=== PATIENT | female | born 1975 | race African-American/Black ===

== ENCOUNTER 2019-01-10 12:26 | Inpatient (IN) ==
--- NOTE | 2019-01-10 12:42 | EKG Report ---
Test Performed on : 01/10/2019 12:33:56 PM Test Reason : cp Blood Pressure : / mmHG Vent. Rate : 127 BPM Atrial Rate : 127 BPM P-R Int : 000 ms QRS Dur : 088 ms QT Int : 302 ms P-R-T Axes : 000 -27 151 degrees QTc Int : 438 ms Atrial fibrillation. with rapid ventricular response. with premature ventricular or aberrantly conduc jean pierre complexes. Voltage criteria for left ventricular hypertrophy ST & T wave abnormality, consider lateral ischemia Abnormal ECG When compared with ECG of 14-FEB-2018 10:51, Atrial fibrillation. has replaced Sinus rhythm. Vent. rate has increased BY 70 BPM T wave inversion no longer evident in Inferior leads Unconfirmed Result
[2019-01-10] MEDS ORDERED: CARDIZEM IV ONE (13:05)
[2019-01-10] MEDS ORDERED: CARDIZEM 100 MG/NS 100 MG/100 ML IVPB IV SCH (13:15)
[2019-01-10 13:26] LABS: ALLEN TEST YES; BE 4.3 mmoll (-3.0-3.0); BLOOD TYPE ARTERIAL; HCO3-(ACT) 28.2 mmoll (20.0-26.0); METHB 1.2 % (0.0-1.5); MODALITY ROOM AIR; O2(CT) 22.7 mL/dL (15.0-23.0); PO2(98.6) 132 mmHg (60-100); SAMPLE BLOOD; SAO2 99.2 % (95.0-100.0); THB 16.7 g/dL (11.5-17.4)
[2019-01-10 13:27] LABS: PCO2(98.6) 14 mmHg (35-45); pH(98.6) 7.75 (7.35-7.45)
[2019-01-10] MEDS ORDERED: ATIVAN IV ONE (13:30)
--- NOTE | 2019-01-10 13:52 | Diag Imaging Result Doc PS360 ---
EXAM: CHEST-1 VIEW INDICATION: cp, sob TECHNIQUE: One view COMPARISON: 04/20/2018 FINDINGS: The lungs are grossly clear. There is no discrete pleural fluid collection or pneumothorax. The heart is mildly prominent but stable. Central vasculature is unremarkable. IMPRESSION: Stable mild cardiomegaly. No definite acute chest pathology. Electronically signed by Clayton Schilling 01/10/2019 1:50 PM
[2019-01-10] MEDS ORDERED: CARDIZEM 125 MG/D5W 125 MG/125 ML IVPB IV ONE (14:00)
[2019-01-10 14:01] LABS: BASO# 0.02 X1000 (0.0-0.2); BASO% 0.2 % (0.0-0.8); EOS# 0.14 X1000 (0.0-0.7); EOS% 1.2 % (0.0-10.0); HEMATOCRIT 46.7 % (37.0-47.0); HEMOGLOBIN 16.6 g/dL (12.0-16.0); IMM GRAN# 0.02 X1000 (0.0-0.04); IMM GRAN% 0.2 % (0.0-0.5); LYMPH# 2.44 X1000 (1.2-3.4); MCH 33.1 PG (27-31); MCHC 35.5 g/dL (33-37); MONO# 0.72 X1000 (0.11-0.59); MONO% 6.2 % (1.7-9.3); MPV 11.3 FL (7.4-10.4); NEUT# 8.29 X1000 (1.4-6.5); NEUT% 71.2 % (42.2-75.2); PLT 178 X1000 (130-400); RBC 5.02 XMIL (4.2-5.4); RDW 11.9 % (11.5-14.5); WBC 11.63 X1000 (4.8-10.8)
[2019-01-10 14:10] LABS: INR 0.99; PROTIME 13.2 Seconds (11.0-16.0)
[2019-01-10 14:11] LABS: PTT 33.5 Seconds (22.3-41.8)
[2019-01-10 14:24] LABS: ALBUMIN 4.3 g/dL (3.5-5.0); CALCIUM 10.4 mg/dL (8.8-10.2); CREATININE 1.4 mg/dL (0.5-0.9); POTASSIUM 3.6 mmol/L (3.5-5.1); TOTAL BILIRUBIN 1.15 mg/dL (0.20-1.00); TOTAL PROTEIN 8.3 g/dL (6.3-8.3)
[2019-01-10 14:25] LABS: ALB/GLOB RATIO 1.1
--- NOTE | 2019-01-10 16:04 | Diag Imaging Result Doc PS360 ---
EXAM: CT ANGIOGRAM PULMONARY ARTERIES - 01/10/2019 HISTORY: thoracic aneurysm, sob TECHNIQUE: CT angiogram pulmonary arteries with intravenous contrast. Axial, coronal, and 3-D MIP images are obtained. COMPARISON: None. FINDINGS: There are no filling defects identified pulmonary arteries. The ascending aorta is mildly ectatic up to 3.7 cm. There is no other thoracic aortic aneurysm identified. The contrast bolus timing was optimized for evaluation of the pulmonary arteries. There is no obvious thoracic aortic dissection, however. There are scattered ill-defined pulmonary opacities, some which are associated with small emphysematous bulla. There is no dense consolidation, pleural effusion, or pneumothorax identified. There are calcified subcarinal mediastinal lymph nodes from old granulomatous disease. There are no abnormally enlarged noncalcified mediastinal lymph nodes identified. There is nonspecific mild enlargement of the visualized left adrenal gland. IMPRESSION: No evidence of pulmonary embolism. Mild ectasia of ascending aorta at 3.7 cm. Scattered nonspecific ill-defined small pulmonary opacities, some which appear to be associated with small emphysematous bulla. Correlation with clinical evaluation and/or follow-up is recommended. Electronically signed by Ronny Christian 01/10/2019 4:02 PM
[2019-01-10] MEDS ORDERED: TYLENOL PO PRN (16:25)
[2019-01-10] MEDS ORDERED: ZOFRAN IV PRN (16:25)
[2019-01-10] MEDS ORDERED: LASIX PO SCH (17:00)
[2019-01-10] MEDS ORDERED: CARDIZEM 125 MG/D5W 125 MG/125 ML IVPB IV SCH (17:00)
--- NOTE | 2019-01-10 18:42 | HISTORY AND PHYSICAL ---
PRIMARY CARE PROVIDER: CHRIS Alves and Dr. Cobb. PLUG SHAPER HAND: Dr. Best. CHIEF COMPLAINT: Chest pain with palpitations. HISTORY OF PRESENT ILLNESS: Ms. Brandy Ruiz is a 43-year-old female with a medical history of hypertrophic cardiomyopathy and diastolic heart failure, hypertension, thoracic aneurysm, who has never had a history of atrial fibrillation. She does state that recently she has been having palpitations from time to time but nothing like this morning. Around 9 a.m. she took her Toprol along with all of her other morning medications, she ate breakfast, and then at 9:30 a.m. she developed a sudden onset of chest discomfort with palpitations. She had dizziness, lightheadedness, nausea, and diaphoresis that was along with it. She felt very anxious and was brought here to the emergency department. She was found to be in atrial fibrillation with rapid ventricular response. Blood pressure was stable. She was given IV Cardizem and started on a drip which controlled the rate. She has been in an out of atrial fibrillation. She does have a little bit of chronic kidney disease, it looks like stage 3, and has been complaining of decreased urine output. So, we will admit her to [facility] for further evaluation and workup with Cardiology consulted. She will have an echocardiogram this admission. PAST MEDICAL HISTORY: 1. Hypertrophic cardiomyopathy. 2. Diastolic heart failure. 3. Hypertension. 4. Thoracic aneurysm. 5. Chronic kidney disease stage 3. 6. Morbid obesity, BMI is 40.6. Apparently she was heavier than that at one point in time. PAST SURGICAL HISTORY: Hysterectomy. SOCIAL HISTORY: She is a nonsmoker. She quit smoking around a year ago but she apparently smoked since the age of 19, less than a half pack per day. She used to smoke marijuana; also stop that a year ago. She drinks every other weekend, red wine. She currently works at a day care. Lives with her . FAMILY HISTORY: Mother had diabetes type 2 and hypertension. Grandmother on the maternal side had diabetes, congestive heart failure, hypertension, stroke, and heart attack. Grandfather, heart attack and prostate cancer. Father is unknown. ALLERGIES: No known drug allergies. HOME MEDICATIONS: 1. Spironolactone hydrochlorothiazide 25/25 1 tablet p.o. on Wednesday, Wednesday, Wednesday, Wednesday, Wednesday. 2. Hydralazine 100 mg p.o. t.i.d. 3. Aspirin 81 mg p.o. daily. 4. Ferrous sulfate 325 mg p.o. daily. 5. Lasix 20 mg p.o. t.i.d. 6. Potassium chloride 20 mEq p.o. daily. 7. Toprol 200 mg p.o. daily. 8. Norvasc 10 mg p.o. daily. 9. Lisinopril 40 mg p.o. daily. 10. Vitamin D 00999 units p.o. every 7 days. REVIEW OF SYSTEMS: Fourteen point review of systems are complete and all were negative except for those mentioned above in HPI. She has complained of some fluid weight gain. No chest pains except for today. Has been having palpitations on and off. Denies fever, chills, nausea, vomiting except she had nausea this morning. She stated that she did have tingling in the left fingers and left foot after she had gotten here but that has resolved. PHYSICAL EXAMINATION: VITAL SIGNS: Temperature 99.6 degrees, heart rate 80, respiratory rate 22, blood pressure 147/97, O2 saturation 100% on nasal cannula. She is 5 feet 9 inches tall, 275 pounds with a BMI of 40.6. GENERAL: Ms. Brandy Ruiz is a 43-year-old female. She is in no acute distress. She is mildly short of breath but is able answer all questions without difficulty. HEENT: Atraumatic, normocephalic. Pupils equal, round, reactive to light. Extraocular movements intact. Mucous membranes are moist. NECK: Trachea midline. CARDIOVASCULAR: Irregularly irregular rate and rhythm with what sounds like a holosystolic murmur about a 4/6 grade, maybe even a 5/6 grade. She has trace pitting edema in the left lower extremity. The right lower extremity is without edema. There are +2 dorsalis and radial pulses. Mild JVD. Negative for carotid bruits. PULMONARY: Clear to auscultation. Bilateral breath sounds. No accessory muscle use, just mild work of breathing. Tolerating nasal cannula. GI: Soft, round. Positive bowel sounds x4. EXTREMITIES: Moves all extremities equally. Full range of motion. NEUROLOGIC: A O x3. Follows commands. Sensory is intact. SKIN: Warm, dry, intact. LABORATORY DATA: White blood cells 11,000, hemoglobin 16, hematocrit 46, platelet count 178,000. INR 0.99, PTT is 33.5. D-dimer 0.49. ABGs on room air, pH 7.75, pCO2 14, PO2 132, bicarb 28, base excess 4, saturation 96%. Lactate 2.3. Sodium 137, potassium 3.6, BUN 23, creatinine is 1.4, glucose 121, calcium 10.4, magnesium 1.7. Bilirubin is 1.15, AST 19, ALT 13. Troponin 0.016. ProBNP is 5,511. Albumin 4.3. IMAGING: Pulmonary arteriogram: No evidence of pulmonary embolism. There is mild ectasia of the ascending aorta at 3.7 cm. Scattered nonspecific, ill-defined, small pulmonary opacity some of which appeared to be associated with small emphysematous bullae. Chest x-ray: Stable mild cardiomegaly. No acute findings. EKG: The one at 12:33 was atrial fibrillation with RVR, rate 127. ASSESSMENT AND PLAN: 1. New onset atrial fibrillation with rapid ventricular response. Could be secondary to her hypotrophic cardiomyopathy. She was started on Cardizem, was given a push and rate was more controlled and chest discomfort that was going along with the rate has nearly subsided. Cardiology is consulted. 2. Chest pain, likely associated with the rapid ventricular response of atrial fibrillation. Will do cardiac enzymes. Repeat EKG in the morning. 3. Diastolic congestive heart failure. She has trace pitting edema in the left lower extremity. She is on Lasix 20 p.o. 3 times a day. She is on Toprol. Will continue those 2. 4. Chronic kidney disease stage 3. It looks like she is pretty much at baseline. She has complained of decreased urination, so we will have to keep a strict I O, especially while she is on her p.o. Lasix. 5. Hypertension. Hold the lisinopril for now. Continuing her on her Norvasc and her Toprol and her hydrochlorothiazide with spironolactone. Blood pressure is in the 140s at this time. She already took her morning medications. 6. Deep venous thrombosis prophylaxis. Heparin 5000 units subcutaneously twice a day. Dictated by CHRIS Bird for John Collins MD cc: CHRIS Bird MD Luis N. Villanueva, MD I agree with most components of history, physical, assessment and plan. A separate addendum has been dictated. MTDD
[2019-01-10] MEDS ORDERED: LOVENOX 1 MG/KG SUBQ SCH (19:15)
[2019-01-10] MEDS ORDERED: NS 1,000 ML IV SCH ×2 (19:15)
--- NOTE | 2019-01-10 20:08 | HISTORY AND PHYSICAL ---
ADDENDUM: This is an addendum to History and Physical dictated by nurse practitioner. I agree with most components of the history, physical, assessment and plan. In brief, Ms. Grijalva is a 43-year-old lady, with past medical history of essential hypertension, congestive heart failure, significant left ventricular hypertrophy, who came in with chief complaints of chest pain and palpitation. Apparently, patient has been having some sinus symptoms since last few days. However, it did not bother her. Today morning, she woke up and she was doing okay. Around 9 a.m., she suddenly started developing chest discomfort in the center of the chest associated with dizziness, lightheadedness, nausea and vomiting, and she probably threw up her medications. She felt anxious and was brought to the emergency department, where she was found to have atrial fibrillation with rapid ventricular response. Her heart rate initially was in the 140s, which came down after intravenous diltiazem, following which hospitalist team was consulted for further management. SUBJECTIVE: At the time of my evaluation, she is feeling slightly better. She is still complaining of heavy pressure in the chest which is reproducible. She denies any more nausea or vomiting. She denies any shortness of breath as such. VITAL SIGNS: Temperature 98.5 degrees, pulse 73, respiratory rate 21, blood pressure 115/94, saturating 95% on 2 L nasal cannula. PHYSICAL EXAMINATION: GENERAL: Morbidly obese, not in acute distress. ORAL CAVITY: Moist. LUNGS: Air entry bilaterally equal. No wheeze, rhonchi, crackles. CARDIOVASCULAR: S1, S2 normal. No murmur, rub, or gallop. Irregularly irregular, except mild systolic murmur affecting left 2nd intercostal space, accentuated during inspiration. ABDOMEN: Obese, soft, nontender. EXTREMITIES: Mild lower extremity edema. NEUROLOGIC: She is alert, oriented x3, but appears very weak. LABS: Significant for mild leukocytosis, normal hemoglobin which, in fact, appears concentrated. She has alkalosis, predominantly respiratory. There is discrepancy between bicarbonate reported on ABG as well as BMP. She also has renal failure. Her proBNP was elevated. MICROBIOLOGY: No data. IMAGING: Pulmonary arteriogram had no evidence of pulmonary embolism. There was mild ectasia for the ascending aorta at 3.7 cm. ASSESSMENT: 1. Atypical chest pain and palpitations, likely in the setting of atrial fibrillation. 2. Profound respiratory alkalosis. Could have been panic attack, though she denies prior history of those attacks before. 3. Essential hypertension. 4. History of hypertrophic cardiomyopathy without obstruction. 5. Essential hypertension. 6. Atrial fibrillation with rapid ventricular rate. PLAN: 1. I will keep the patient on intravenous diltiazem drip. 2. Follow up echocardiogram. 3. Will resume her home metoprolol tomorrow. 4. Will also keep on enoxaparin, therapeutic dose. 5. I will also get inflammatory markers to see if a viral syndrome could have precipitated, since she has had sinus symptoms. 6. I will give her intravenous fluid resuscitation because she appears clinically volume depleted, and follow up with arterial blood gases. 7. Plan of care discussed with patient and her family members at bedside. Their questions have been answered. cc: John Collins MD
[2019-01-10] MEDS: LOVENOX SUBQ SCH (20:15)
[2019-01-10] MEDS ORDERED: HEPARIN SUBQ SCH (21:00)
[2019-01-10 21:28] LABS: BLOOD TYPE ARTERIAL; SAMPLE BLOOD
[2019-01-10 21:29] LABS: ALLEN TEST YES; BE 1.7 mmoll (-3.0-3.0); HCO3-(ACT) 26.2 mmoll (20.0-26.0); O2(CT) 21.8 mL/dL (15.0-23.0); O2HB 96.9 % (95.0-99.0); PCO2(98.6) 33 mmHg (35-45); PO2(98.6) 137 mmHg (60-100); SAO2 99.4 % (95.0-100.0); THB 15.9 g/dL (11.5-17.4); pH(98.6) 7.48 (7.35-7.45)
[2019-01-10 21:31] LABS: MODALITY CANNULA
[2019-01-10] MEDS: XOPENEX NEB INH SCH (22:49)
[2019-01-10] MEDS: ATROVENT NEB INH SCH (22:49)
[2019-01-11 01:21] LABS: UR CREAT RANDOM 101.3 mg/dL (11-20)
[2019-01-11] MEDS: ATROVENT NEB INH SCH ×3 (03:58→15:28)
[2019-01-11] MEDS: XOPENEX NEB INH SCH ×3 (03:58→15:28)
[2019-01-11 04:44] LABS: BLOOD TYPE ARTERIAL; PCO2(98.6) 41 mmHg (35-45); SAMPLE BLOOD
[2019-01-11 04:45] LABS: HCO3-(ACT) 25.4 mmoll (20.0-26.0); PO2(98.6) 138 mmHg (60-100)
[2019-01-11 04:46] LABS: ALLEN TEST YES; MODALITY CANNULA
[2019-01-11 05:48] LABS: BASO# 0.01 X1000 (0.0-0.2); BASO% 0.1 % (0.0-0.8); EOS# 0.15 X1000 (0.0-0.7); EOS% 2.2 % (0.0-10.0); HEMATOCRIT 43.5 % (37.0-47.0); LYMPH# 1.84 X1000 (1.2-3.4); LYMPH% 26.7 % (20.5-51.1); MCH 33.5 PG (27-31); MCHC 34.5 g/dL (33-37); MCV 97.1 FL (81-99); MONO# 0.84 X1000 (0.11-0.59); MONO% 12.2 % (1.7-9.3); MPV 10.6 FL (7.4-10.4); NEUT# 4.06 X1000 (1.4-6.5); NEUT% 58.8 % (42.2-75.2); PLT 136 X1000 (130-400); RBC 4.48 XMIL (4.2-5.4); RDW 12.1 % (11.5-14.5)
[2019-01-11 06:04] LABS: INR 1.22; PROTIME 15.6 Seconds (11.0-16.0); PTT 42.6 Seconds (22.3-41.8)
[2019-01-11 06:17] LABS: ALB/GLOB RATIO 1.3; ALBUMIN 3.7 g/dL (3.5-5.0); CALCIUM 8.7 mg/dL (8.8-10.2); CREATININE 1.3 mg/dL (0.5-0.9); POTASSIUM 3.4 mmol/L (3.5-5.1); TOTAL BILIRUBIN 1.51 mg/dL (0.20-1.00); TOTAL PROTEIN 6.5 g/dL (6.3-8.3)
[2019-01-11] MEDS: LOVENOX SUBQ SCH (06:32)
--- NOTE | 2019-01-11 07:33 | EKG Report ---
Test Performed on : 01/11/2019 06:37:12 AM Test Reason : chest pain Blood Pressure : / mmHG Vent. Rate : 077 BPM Atrial Rate : 046 BPM P-R Int : 000 ms QRS Dur : 088 ms QT Int : 390 ms P-R-T Axes : 000 -14 163 degrees QTc Int : 441 ms Atrial fibrillation. Voltage criteria for left ventricular hypertrophy ST & T wave abnormality, consider lateral ischemia Abnormal ECG When compared with ECG of 10-JAN-2019 14:39, (Unconfirmed) No significant change was found Confirmed by Enrico ANSARI, Esteban Canales ([id number]) on 01/11/2019 8:40:02 AM
--- NOTE | 2019-01-11 08:23 | EKG Report ---
Test Performed on : 01/10/2019 2:39:53 PM Test Reason : ED. NO EKG ORDER FOR MUSE Blood Pressure : / mmHG Vent. Rate : 091 BPM Atrial Rate : 163 BPM P-R Int : 000 ms QRS Dur : 090 ms QT Int : 366 ms P-R-T Axes : 000 -17 162 degrees QTc Int : 450 ms Atrial fibrillation. with a competing junctional pacemaker. with premature ventricular or aberrantly conducted complexes. Voltage criteria for left ventricular hypertrophy ST & T wave abnormality, consider lateral ischemia Abnormal ECG When compared with ECG of 10-JAN-2019 12:33, (Unconfirmed) No significant change was found Unconfirmed Result
[2019-01-11] MEDS: FERROUS SULFATE PO SCH (08:31)
[2019-01-11] MEDS: TOPROL XL PO SCH (08:31)
[2019-01-11] MEDS: ASPIRIN PO SCH (08:32)
[2019-01-11] MEDS: NORVASC PO SCH (08:32)
--- NOTE | 2019-01-11 11:04 | EKG Report ---
Test Performed on : 01/11/2019 10:59:39 AM Test Reason : afib Blood Pressure : / mmHG Vent. Rate : 065 BPM Atrial Rate : 051 BPM P-R Int : 216 ms QRS Dur : 090 ms QT Int : 436 ms P-R-T Axes : 071 -17 178 degrees QTc Int : 453 ms Sinus bradycardia. with marked sinus arrhythmia. with 1st degree AV block. with occasional premature ventricular complexes. Left ventricular hypertrophy with repolarization abnormality Abnormal ECG When compared with ECG of 11-JAN-2019 06:37, Sinus rhythm. has replaced Atrial fibrillation. Confirmed by Enrico ANSARI, Esteban Canales ([id number]) on 01/12/2019 8:27:03 AM
[2019-01-11] MEDS ORDERED: KLOR-CON PO ONE (11:11)
--- NOTE | 2019-01-11 11:33 | CARDIOLOGY CONSULTATION ---
DATE: 01/11/2019 CHIEF COMPLAINT ON PRESENTATION: Chest pain with palpitations. HISTORY OF PRESENT ILLNESS: Ms. Brandy Ruiz is a 43-year-old, black female with a history of hypertrophic cardiomyopathy and diastolic failure, normally followed by Dr. Best in the cardiology clinic. Yesterday morning, around 9:30, she was sitting down when she began having some complaints of chest pain and heart racing. This persisted for around an hour to an hour and a half, waxing and waning, and was also associated with dyspnea on exertion. She subsequently asked her to contact EMS and was brought in for evaluation. She was found to be in rapid atrial fibrillation, which is a new diagnosis for her. She has no orthopnea. Prior to yesterday morning, she was in her usual state of health and has been adherent to her medications. PAST MEDICAL HISTORY: Significant for: 1. Hypertrophic cardiomyopathy. The last echocardiogram that we have on her is in January of 2018. It was a transesophageal echocardiogram. It was notable for an intraventricular septum of 2 cm and a posterior wall of 1.6 cm. She had an ejection fraction of 75% on that study. 2. Diastolic heart failure. 3. Relative bradycardia. 4. Hypertension. 5. Tobacco use. 6. History of thoracic aortic aneurysm. I do not have any imaging data such as a CT on this. 7. Chronic kidney disease. Most recent creatinines were in the 1.3 to 1.4 range. 8. Obesity. 9. Sleep apnea. 10. She had a nuclear stress test in January of 2018 showing an ejection fraction of 54% with no perfusion defects. She had a Holter monitor in August of 2018 showing no significant arrhythmias. SOCIAL HISTORY: She is apparently . She quit smoking around a year ago. She quit marijuana as well. She drinks red wine every other weekend. FAMILY HISTORY: Mother has diabetes and hypertension. REVIEW OF SYSTEMS: A 10 system review of systems is negative except for those things mentioned in the HPI. PHYSICAL EXAMINATION: Afebrile. Heart rate currently is in the 50s. She is in sinus on telemetry as well as recent EKG. Her blood pressure is 108/76. General: She is in no acute distress. Pleasant. HEENT: Oropharynx is moist. Normal dentition. Eye examination shows pink conjunctivae and white sclerae. Neck: Examination shows no obvious thyromegaly or thyroid tenderness. Cardiovascular: Bradycardic rate. Regular rhythm. She has a 2/6 systolic murmur, best heard at the right upper sternal border. She has no lower extremity edema. She has warm and well perfused extremities. Her chest examination sounds clear. She has no increased work of breathing. Abdomen: Soft, nontender, nondistended. She has no obvious organomegaly. Skin: Examination is warm and dry throughout, without any rashes. Neurological: She is moving all extremities well. She has no lateralizing deficits. PERTINENT DATA: She had an EKG at 12:30 yesterday, showing rapid atrial fibrillation, evidence for LVH, PVC versus aberrantly conducted beat with some nonspecific ST-T changes. Her next EKG occurring yesterday at 14:39 again showed atrial fibrillation, rate of 91 beats per minute, aberrant conduction versus PVC. Next EKG occurring on the at 6:37 showed rate controlled atrial fibrillation at 77 beats per minute with LVH. Her final EKG this morning at 10:59 shows sinus rhythm, rate of 65 beats per minute, first-degree AV block. She had a pulmonary arteriogram demonstrating mild ectasia of the aorta at 3.7 cm. No evidence of PE. Her lab data shows a white count of 6.9, hematocrit 43, platelet count 136,000. INR of 1.2. Sodium 135, potassium is 3.4, BUN 23, creatinine is 1.3. Her magnesium level is 2.0. Her cardiac enzymes are negative. Her proBNP yesterday was 5511. TSH 1.0. ASSESSMENT: Ms. Rudi Ruiz is a 43-year-old, black female with a history of hypertrophic cardiomyopathy and new onset atrial fibrillation. PLAN: She has converted to sinus. We will initiate amiodarone at 400 t.i.d. We will stop her Lovenox and place her on Eliquis this evening. We will refer her over the electrophysiology service for consideration of ablation with her history of hypertrophic cardiomyopathy. We will continue her on her other medications. We will replete her potassium, if it has not already been done. cc: Wicho Rivas MD
[2019-01-11] MEDS: FLAGYL PO SCH ×2 (11:59→20:00)
[2019-01-11] MEDS: ALDACTAZIDE 25/25 PO SCH (11:59)
[2019-01-11] MEDS: CORDARONE PO SCH ×3 (11:59→20:00)
--- NOTE | 2019-01-11 14:03 | ECHO REPORT ---
ORDER DATE: 01/10/2019 INTERPRETATION: Ward Edge MD. ECHOCARDIOGRAPHIC MEASUREMENTS: 1. Interventricular septum 2.2 cm. 2. Left ventricular posterior wall 1.5 cm. 3. Left ventricular diastolic diameter 3.4 cm. 4. Aorta 1.8 cm. 5. Left atrium 3.4 cm. FINDINGS: 1. Aortic valve leaflets are trileaflet. 2. Mitral valve leaflets revealed systolic anterior motion of the tip of the anterior mitral valve leaflet. 3. Tricuspid valve is normal. 4. Pulmonic valve is normal. 5. Peak velocity across the aortic valve less than 2 m/sec. There is no aortic stenosis or regurgitation. 6. There is mild mitral regurgitation. 7. Mild tricuspid regurgitation. Peak velocity across the tricuspid valve was 4.3 m/sec. 8. Pulmonary artery systolic pressure of 83 mmHg. 9. Normal left ventricular cavity size. There is asymmetric septal hypertrophy associated with concentric hypertrophy as well with obliteration of the left ventricular cavity end-systole. The peak gradient across the left ventricular outflow tract was 5.6 m/sec with a peak gradient of 125 mmHg. With Valsalva, it had increased to 6 m/sec. There is significant outflow tract obstruction. 10. There is no pericardial effusion or obvious intracardiac mass or thrombus seen. cc: MD Lynette Byrd CRNP
[2019-01-11] MEDS ORDERED: ALDACTAZIDE 25/25 PO SCH (16:30)
--- NOTE | 2019-01-11 18:44 | PROGRESS NOTE ---
DATE: 01/11/2019 INTERVAL HISTORY: No acute events overnight. Her diltiazem drip was stopped yesterday at nighttime because of hypotension. However, she had converted to normal sinus rhythm in the morning time. She has been also started on amiodarone. SUBJECTIVE: She is feeling much better. Denies any chest pain or shortness of breath. We discussed about atrial fibrillation etiology, pathology. We also discussed about ablative procedure with Cardiology, who is recommending for future. VITALS: Currently, temperature 98.2 degrees, pulse 56, respiratory 19, blood pressure 127/80, saturating 98% on room air. PHYSICAL EXAMINATION: General: Does not appear in any acute distress. Oral cavity is moist. Air entry bilaterally equal. No wheeze or rhonchi. Heart sounds are normal regular. No murmur, rub or gallop. Abdomen: Soft, nontender, obese. No lower extremity edema. She is alert and oriented x3. LABORATORY DATA: Suggestive of no leukocytosis. Normal hemoglobin, normal platelet count. Her ABG is suggestive of resolution of respiratory alkalosis. She does have hypokalemia, which is being repleted. Her kidney dysfunction is improving. MICROBIOLOGY: No data. IMAGING: Echocardiogram performed had asymmetric septal hypertrophy associated with concentric hypertrophy and obliteration of left ventricular cavity. The peak gradient has increased with significant outflow tract obstruction. ASSESSMENT AND PLAN: 1. Atypical chest pain and palpitation, likely in the setting of atrial fibrillation, now resolved. Her troponins were not suggestive of acute coronary syndrome and her nuclear medicine stress test in 2018, was unremarkable. 2. Atrial fibrillation with rapid ventricular rate, status post intravenous diltiazem drip. She is currently now in sinus rhythm. I will continue metoprolol, amiodarone, and Eliquis. Cardiology team will plan outpatient electrophysiology followup likely. 3. History of hypertrophic cardiomyopathy and essential hypertension. I will continue her home amlodipine, aspirin, metoprolol, spironolactone, and hydrochlorothiazide. DISPOSITION: I will monitor patient on amiodarone for 24 hours to make sure her atrial fibrillation does not recur. Based on that, my plan is to discharge her home tomorrow with outpatient cardiology followup. Plan of care discussed with her. Her questions have been answered. cc: MD ALLYN Worthington
[2019-01-11] MEDS: ELIQUIS PO SCH (20:00)
[2019-01-12] MEDS: FLAGYL PO SCH ×3 (04:20→22:44)
[2019-01-12 06:38] LABS: CALCIUM 8.8 mg/dL (8.8-10.2); CREATININE 1.6 mg/dL (0.5-0.9); MAGNESIUM 1.9 mg/dL (1.5-2.7); POTASSIUM 3.8 mmol/L (3.5-5.1)
[2019-01-12] MEDS: TOPROL XL PO SCH (08:30)
[2019-01-12] MEDS: FERROUS SULFATE PO SCH (08:33)
[2019-01-12] MEDS: ELIQUIS PO SCH ×2 (08:34→22:44)
[2019-01-12] MEDS: CORDARONE PO SCH (08:34)
[2019-01-12] MEDS: ASPIRIN PO SCH (08:35)
[2019-01-12] MEDS: NORVASC PO SCH (08:35)
--- NOTE | 2019-01-12 10:47 | EKG Report ---
Test Performed on : 01/12/2019 10:35:06 AM Test Reason : FOllow up heart rhythm Blood Pressure : / mmHG Vent. Rate : 044 BPM Atrial Rate : 044 BPM P-R Int : 194 ms QRS Dur : 088 ms QT Int : 456 ms P-R-T Axes : 063 044 252 degrees QTc Int : 389 ms Marked sinus bradycardia. Left ventricular hypertrophy with repolarization abnormality Abnormal ECG When compared with ECG of 11-JAN-2019 10:59, premature ventricular complexes. are no longer present Vent. rate has decreased BY 21 BPM Inverted T waves have replaced nonspecific T wave abnormality in Inferior leads QT has shortened Confirmed by Enrico ANSARI, Esteban Canales ([id number]) on 01/12/2019 5:56:49 PM
[2019-01-12] MEDS: ALDACTAZIDE 25/25 PO SCH (11:08)
--- NOTE | 2019-01-12 12:48 | PROGRESS NOTE ---
DATE: 01/12/2019 INTERVAL HISTORY: No acute events overnight. She does have a drop in her kidney function though. She, overnight, developed bradycardia with heart rate of 50s, with first-degree AV block. In the morning time, her heart rate had started dropping into the 40s. Currently the patient denies any chest pain or shortness of breath, she is feeling okay. She denies any nausea or vomiting. PHYSICAL EXAMINATION: Vitals: Temperature 98.4 degrees, pulse 50, respiratory rate 18, blood pressure 110/75, saturating 100% on room air. General: Not in any acute distress. HEENT: Oral cavity is moist. Respiratory: Air entry bilaterally equal. No wheezing, no rhonchi, no crackles. Cardiac: Heart sounds are normal. No murmur or gallop. Regular heart rhythm. Abdomen: Soft, obese, nontender. Extremities: No lower extremity edema. Neurologic: She is alert and oriented x3. LABS: Significant for a BUN of 27, creatinine of 1.6. MICROBIOLOGY: No data. IMAGING: No new data. Echocardiogram performed had hypertrophic cardiomyopathy with obstructive feature. ASSESSMENT AND PLAN: 1. Atypical chest pain and palpitations in the setting of atrial fibrillation, now resolved. No evidence of acute coronary syndrome. Nuclear medicine stress test in 2018 was unremarkable. 2. New-onset atrial fibrillation with rapid ventricular rate, status post IV diltiazem drip. Continue oral metoprolol, Eliquis, and amiodarone has been started by Cardiology. She is to follow up with Electrophysiology outpatient for further management. 3. Sinus bradycardia with first-degree AV block. I will appreciate Cardiology recommendations about adjusting/titrating her AV trevor blocking agent. I am holding discharge until her heart rate is in acceptable range. 4. History of hypertrophic obstructive cardiomyopathy with essential hypertension. Continue home amlodipine, aspirin, metoprolol, hydrochlorothiazide, and spironolactone. 5. Acute kidney injury, unclear etiology. She has been listed to be taking hydrochlorothiazide and spironolactone. I will follow up with her creatinine tomorrow to see the trend. It is possible it could be related to intravascular volume depletion. I encouraged her to have oral intake. 6. Disposition. I am awaiting Cardiology recommendation before considering discharging later today or tomorrow. Plan of care discussed with the patient. cc: John Collins MD
[2019-01-13] MEDS: FLAGYL PO SCH (05:33)
[2019-01-13 06:22] LABS: CALCIUM 8.9 mg/dL (8.8-10.2); CREATININE 1.3 mg/dL (0.5-0.9)
[2019-01-13 07:58] VITALS: BP 127/78
[2019-01-13] MEDS ORDERED: CORDARONE PO SCH (09:00)
[2019-01-13] MEDS: NORVASC PO SCH (09:31)
[2019-01-13] MEDS: TOPROL XL PO SCH (09:31)
[2019-01-13] MEDS: ASPIRIN PO SCH (09:31)
[2019-01-13] MEDS: ELIQUIS PO SCH (09:31)
[2019-01-13] MEDS: FERROUS SULFATE PO SCH (09:31)
[2019-01-13] MEDS: ALDACTAZIDE 25/25 PO SCH (11:23)
--- NOTE | 2019-01-14 08:46 | DISCHARGE SUMMARY ---
ADMISSION DATE: 01/10/2019 DISCHARGE DATE: 01/13/2019 DISCHARGE DISPOSITION: Home. DISCHARGE CONDITION: Hemodynamically stable. She does have sinus bradycardia with heart rate as low as 46 per minute. However, she has been asymptomatic, and her amiodarone dose has already been decreased. She is able to carry out physical activity without any dizziness or syncope symptoms. 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 DISCHARGE DIAGNOSES: 1. Atrial fibrillation with rapid ventricular rate. 2. Atypical chest pain and palpitation because of atrial fibrillation. 3. New-onset atrial fibrillation with rapid ventricular rate. 4. Sinus bradycardia on beta pam and amiodarone, asymptomatic. 5. Acute kidney injury. 6. Profound respiratory alkalosis because of anxiety and atrial fibrillation leading to shortness of breath. OTHER DIAGNOSES: 1. History of hypertrophic cardiomyopathy. 2. Essential hypertension. 3. History of essential hypertension. 4. History of chronic anemia. DISCHARGE MEDICATIONS: 1. A BMP panel has been provided to her to get outpatient kidney function done within 5 days. 2. Spironolactone/hydrochlorothiazide 25/25 mg tablet one tablet on Wednesday, Wednesday, Wednesday, and Wednesday. 3. Aspirin 81 mg daily. 4. Ferrous sulfate 325 mg daily. 5. Metoprolol succinate 200 mg daily. 6. Amlodipine besylate 10 mg daily. 7. Ergocalciferol 50,000 units every 7 days. 8. Amiodarone 200 mg daily. This is a new medication and 60 tablets have been prescribed. 9. Apixaban 5 mg b.i.d. This is a new medication and 180 tablets have been prescribed. CONSULTATION DURING HOSPITAL ADMISSION: Dr. Wicho Rivas from Cardiology. VITALS: At the time of discharge, temperature 97.8 degrees, pulse 61, respiratory 17, blood pressure 127/78. She is saturating 99% on room air. PHYSICAL EXAMINATION: General: Does not appear in acute distress. Oral cavity: Moist. Lungs: Air entry bilaterally equal. No wheeze, rhonchi or crackles. Heart: S1, S2 normal. No murmur, rub, or gallop. Abdomen: Soft, nontender. Extremities: No lower extremity edema. Neurologic: She is alert and oriented x3. LABS: Suggestive of BUN of 21, creatinine of 1.3, sodium 135. SIGNIFICANT IMAGING: During hospital admission chest x-ray had a stable mild cardiomegaly without any acute chest pathology. Pulmonary arteriogram had no evidence of pulmonary embolism. Mild ectasia of ascending aorta at about 3.7 cm. Scattered nonspecific ill-defined small pulmonary opacities associated with small emphysematous bulla. Echocardiogram had suggested normal left ventricular cavity size, asymmetric septal hypertrophy associated with concentric hypertrophy, as well as obliteration of left ventricular cavity and systoles. The peak gradient across left ventricular outflow tract was 5.6 with a peak gradient of 125 with Valsalva. It had increased to 6 m/sec. There was significant outflow tract obstruction without any pericardial effusion or obvious intracardiac mass. Electrocardiogram on presentation showed atrial fibrillation with rapid ventricular rate with premature ventricular complexes, left ventricular hypertrophy and ST-T abnormality in lateral leads. Electrocardiogram on January 12 had marked sinus bradycardia, left ventricular hypertrophy with repolarization abnormalities. HOSPITAL COURSE SUMMARY: Ms. Grijalva is a 43-year-old lady with past medical history of hypertrophic cardiomyopathy, who presented on 01/10/2019 with chief complaint of chest pain and palpitation. Apparently, patient has been having some sinus drainage symptoms since last few days, which did not bother her. Today at around 9 a.m. she suddenly started developing chest discomfort in the center of the chest associated with dizziness, lightheadedness, nausea, vomiting. She felt anxious and was brought to the emergency department where she was found to have atrial fibrillation with rapid ventricular response. Her heart rate initially was in the 140s, which came down after intravenous diltiazem drip, following which hospitalist team was consulted for further management. Her blood pressure dropped on intravenous diltiazem drip, so she was changed to amiodarone orally and kept on her home metoprolol regimen. However, on amiodarone she did have a drop in her pulse rate to as low as 43 per minute, though she was asymptomatic. Later on the dose of amiodarone was decreased, and she was currently being discharged on amiodarone 200 mg daily and metoprolol 200 mg daily. At the time of discharge, she is hemodynamically stable. She was advised to have outpatient follow up with Dr. Best. All of her questions were significantly answered. TIME SPENT: More than 30 minutes spent discharging this patient. cc: John Collins MD
== END 2019-01-13 12:21 | disposition home or self-care (01) | DRG 309 ==
LOC: SUPCPDRO → ED 12:26 → 2N 16:26
PROVIDERS: ATTEND Internal Medicine